=== PATIENT | female | born 1960 | race Caucasian/White ===

== ENCOUNTER 2022-08-27 07:06 | Day surgery (SDC) | payer BC, SELFPAY ==
[2022-08-27] VITALS (24 sets, daily range): BP systolic 96–193; BP diastolic 40–107; PULSE 50–72; RESP 12–18; TEMP 36.4–36.9; O2SAT 92–100; BMI 34.3
[2022-08-27] MEDS: OXYCODONE (CR) 10 MG TAB.ER.12H PO (07:22)
[2022-08-27] MEDS: ACETAMINOPHEN 500 MG TABLET 1000 MG PO ×3 (07:22→20:13)
[2022-08-27] MEDS: LACTATED RINGERS 1000 ML 1,000 ML 100 ML IV ×2 (07:25→10:45)
[2022-08-27] MEDS: SODIUM CHLORIDE 0.9 % (FLUSH) 10 ML SYRINGE IVF (08:01)
--- NOTE | 2022-08-27 08:42 | SUR.PREOP ---
TIME?OUT:?0846 PT/RN/MDA?VERIFICATION?OF?SURGICAL?SITE Left Knee,?PROCEDURE Aductor Canal Block,?AND?CONSENT OBTAINED?PRIOR?TO?INVASIVE?PROCEDURE.
[2022-08-27] MEDS: MIDAZOLAM HCL 1 MG/ML inj IVP (08:47)
[2022-08-27] MEDS: fentaNYL 100 MCG/2 ML inj IVP (08:47)
--- NOTE | 2022-08-27 09:15 | W.ANESCHARGE ---
Anesthesia Charges Start Date/Time Anesthesia Start Date: 08/27/22 Anesthesia Start Time: 09:22 Stop Date/Time Anesthesia Stop Date: 08/27/22 Anesthesia Stop Time: 11:49
--- NOTE | 2022-08-27 09:16 | P.NB_ITS ---
Nerve Block Nerve Block Time Seen by Provider: 08:48 Date Seen: 08/27/22 Type of block requested by surgeon for post-operative analgesia: adductor canal Side: left Time out performed: Yes Verification of patient name: Yes Verification of date of : Yes Site marking: site marked Name of person performing procedure: Brandon Continuous monitoring Was continuous monitoring of O2 sat, B/P, nuclear monitoring technician, recorded every 15 minutes?: Yes Procedure Checklist: sterile prep, needles and gloves Ultrasound guided. Images saved: Yes Medications given in 5ml increments after negative aspiration: Ropivicaine %: 0.5 mL: 20 Needle gauge: 20 Decadron (mg): 10 Precedex (mcg): 25 Patient tolerated procedure well: Yes Additional comments: Needle noted adjacent to nerve Block Charges Block Charge (with Pro Fee): Femoral Nerve Use of Ultrasound Machine for Block: Yes- US Guidance/pain block
--- NOTE | 2022-08-27 09:16 | W.PM.NB ---
Nerve Block Nerve Block Time Seen by Provider: 08:48 Date Seen: 08/27/22 Type of block requested by surgeon for post-operative analgesia: geniculars Side: left Time out performed: Yes Verification of patient name: Yes Verification of date of : Yes Site marking: site marked Name of person performing procedure: Brandon Continuous monitoring Was continuous monitoring of O2 sat, B/P, library monitor, recorded every 15 minutes?: Yes Procedure Checklist: sterile prep, needles and gloves Medications given in 5ml increments after negative aspiration: Ropivicaine %: 0.5 mL: 9 Needle gauge: 25 Patient tolerated procedure well: Yes Block Charges Block Charge (with Pro Fee): Genicular Nerve Block Use of Ultrasound Machine for Block: No
[2022-08-27] MEDS: TRANEXAMIC ACID 100 MG/ML INJ 1000 MG IV (09:25)
[2022-08-27] MEDS: CEFAZOLIN 2 GM INJ IVP (09:30)
--- NOTE | 2022-08-27 10:51 | CRLHL7_ITS ---
For Patients: As a result of the Cures Act, medical imaging exams and procedure reports are released immediately into your electronic medical record. You may view this report before your referring provider. If you have questions, please contact your health care provider. Indication: POSTOP TKA Technique: Two views left knee Findings/Impression: Hardware from a left total knee arthroplasty is in satisfactory position. Bone alignment is normal. No sign of acute fracture. Postop changes are within normal limits. Dictated by Alcon Cunha MD @ 08/27/2022 12:27:34 PM (Electronically Signed)
--- NOTE | 2022-08-27 10:54 | P.ORPRC_ITS ---
Procedure Note Date of procedure: 08/27/22 Procedure: PREOPERATIVE DIAGNOSIS: Left knee osteoarthritis POSTOPERATIVE DIAGNOSIS: Left knee osteoarthritis NAME OF OPERATION: Left total knee arthroplasty SURGEON: Omar Johnson MD [place] ATTENDANT: OSCAR Rodriguez ANESTHESIA: Spinal ESTIMATED BLOOD LOSS: 0 mL COMPLICATIONS: None SPECIMENS: None DRAINS: None PREOPERATIVE ANTIBIOTICS: Ancef 2 grams IMPLANTS: 1. J&J Attune # 5 posterior stabilized femur 2. #4 revision fixed-bearing tibia with a 14 mm x 50 mm stem for 3. #4 posterior stabilized, 5 mm fixed-bearing polyethylene 4. 38 patella INDICATIONS: The patient is a 62-year-old with a longstanding history of severe, unrelenting left knee pain secondary to end-stage (grade IV) left knee osteoarthritis. Despite appropriate nonoperative management, including activity modification, anti-inflammatories, eaux-cra-evgjpmi pain medication, bracing, physical therapy, and injections they continue to have pain and disability. Operative intervention was offered. The risks, benefits and expected outcomes were discussed in detail. These in cluded but were not limited to: Infection, bleeding, injury to blood vessel or nerve, venous thromboembolism. All questions were answered to their satisfaction. Use of an human resources office assistant was necessary throughout the case for patient positioning and safety, soft tissue retraction, and closure. PROCEDURE: Spinal anesthesia was administered. The patient was placed supine on the operating table. The human resources office assistant made sure the patient was positioned appropriately. The lower extremity was prepped and draped in the usual sterile fashion. The limb was exsanguinated with the Jw bandage. The pneumatic tourniquet was inflated to 300 mmHg. A standard anterior incision was made with the knee in flexion. Subcutaneous dissection was sharply taken through fascial layer #1. Full-thickness medial an d lateral flaps were elevated. The human resources office assistant retracted the soft tissues and protected them throughout the case. A standard medial parapatellar approach was made. The patella was everted. The infrapatellar fat pad was preserved. The menisci and cruciate ligaments were sharply d?brided. Marginal osteophytes were d?brided with the rongeur. The drill was used to penetrate the femoral canal. The canal was aspirated and irrigated with pulse lavage. The intramedullary femoral guide was placed for a 5-degree valgus cut, removing 11 mm off the distal femur. The saw was used to make the cut. Whitesides line and the trans epicondylar axis were marked. The femoral sizing guide was pinned onto the distal femur. Three degrees of external rotation nicely parallels the transepicondylar axis. Pins were placed for posterior referencing. The four-in-one cutting guide was pinned onto the distal femur. The anterior, posterior, and chamfer cuts were made. The human resources office assistant protected the collateral ligaments. The box cutting guide was pinned. The box cuts were made. The boxed trial was placed and was an excellent fit. Drill holes for the lugs were made. Attention was then turned to the proximal tibia. The extramedullary tibial guide was placed for a neutral varus/valgus cut with 5 degrees of posterior slope, removing 2 mm based off the medial tibial surface. The human resources office assistant protected the collateral ligaments and the neurovascular bundle. The saw was used to make the cut. Trial components were placed. The knee was nicely balanced in both flexion and extension. The trial components were removed. The tray was placed in appropriate rotation, parallel to our tibial cutting pins. It was pinned by the human resources office assistant and the drill and the punch were used. The tray was removed. The punch was used again. We placed a bone plug in the femoral canal. Attention was then turned to the patella. [place] patellar thickness was 19 mm. The lobster claw resection guide was used with the 7.5 mm chantelle and a saw blade used as an extra chantelle. The saw was used to make the cut. Drill holes were made by the human resources office assistant. The trial was placed and was an excellent fit. Cancellous surfaces were irrigated with pulse lavage and thoroughly dried by the human resources office assistant. We cemented the tibial component, then the femoral component. We impacted the 5 mm polyethylene onto the tibial tray. The knee was brought into full extension. We then cemented the patellar component. Excessive cement was removed. The cement was allowed to harden. The knee was taken through a range of motion and was found to be nicely balanced in both flexion and extension. The patella tracks centrally. The human resources office assistant did a three minute dilute Betadine solution soak. The human resources office assistant irrigated the wound with 3 liters of normal saline via pulse lavage. The human resources office assistant reapproximated the extensor mechanism with #1 Vicryl in an interrupted [id number] fashion. The human resources office assistant then ran the extensor mechanism with a #1 PDO Stratafix. The human resources office assistant closed the subcutaneous tissues with a 3-0 Stratafix and the skin with a running 3-0 Stratafix in a subcuticular fashion. Glue was used to seal the skin. The human resources office assistant placed a dry dressing, MARCIAL stocking, and Polar Care. Sponge and needle counts were correct x2. The patient tolerated the procedure well. There were no apparent complications. They were carefully transferred to the hospital bed and taken to the postanesthesia care unit in satisfactory condition. PLAN: The patient will be mobilized with physical therapy. Aspirin will be used for DVT prophylaxis. They will be discharged to home once medically appropriate.
--- NOTE | 2022-08-27 11:52 | W.ANESCHARGE ---
Anesthesia Charges Start Date/Time Anesthesia Start Date: 08/27/22 Anesthesia Start Time: 09:22 Stop Date/Time Anesthesia Stop Date: 08/27/22 Anesthesia Stop Time: 11:49
--- NOTE | 2022-08-27 14:13 | P.IMCN_ITS ---
Date of Consult Patient: Ailin Patient Consult date: 08/27/22 Primary Care Provider: Holly Liu MD Consult Narrative Reason for consult: Medical management of comorbidities Narrative: Florinda Lopez is a 62 year old female who presented to the hospital today for an elective L TKA. There were no surgical or anesthetic complications noted during procedure. Patient's H&P reviewed, PCP is Dr. Liu locally. 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) Nonsmoker, social alcohol Review of Systems Status of ROS: Reports: 10 or more systems reviewed and unremarkable except as noted in History and below PFSH [facility] Medical History Esophageal reflux ?K21.9 - Gastro-esophageal reflux disease without esophagitis (ICD-10) Hypertension ?I10 - Essential (primary) hypertension (ICD-10) Dysmetabolic syndrome ?E88.81 - Metabolic syndrome (ICD-10) Hypothyroid ?E03.9 - Hypothyroidism, unspecified (ICD-10) Basal cell carcinoma (~2008) ?C44.91 - Basal cell carcinoma of skin, unspecified (ICD-10) Surgical History (Updated 08/27/22 @ 14:18 by Lisa Brito MD) Gastric bypass status for obesity (~2013) ?Z98.84 - Bariatric surgery status (ICD-10) History of tonsillectomy ?Z90.89 - Acquired absence of other organs (ICD-10) Family History Mother Breast cancer Sister Multiple sclerosis FHx: total knee replacement Father Pancreatic cancer Social History Smoking Status: Never smoker Do you use any of these nicotine containing products: None Second hand tobacco smoke exposure: No How often do you have a drink containing alcohol: 2-3 times a week How many standard drinks containing alcohol do you have on a typical day: 1 or 2 How often do you have six or more drinks on one occasion: Never AUDIT-C Alcohol total score: 3 Non-prescribed substance use: denies use Caffeine: Yes (coffee, 1 cup/day) Meds Home Medications and Allergies Home Medications Medication Instructions Recorded Confirmed Type calcium carbonate-vitamin D3 500 1 tab PO DAILY 10/17/21 08/27/22 History mg(1,250 mg)-600 unit chewable tablet cholecalciferol (vitamin D3) 50 100 mcg PO DAILY 10/17/21 08/27/22 History mcg (2,000 unit) capsule vvufhobebtw-uciwwokhyvb-qxk C 500 1 tab PO DAILY 10/17/21 08/27/22 History mg-400 mg-20 mg tablet levothyroxine 88 mcg tablet 88 mcg PO DAILY 10/17/21 08/27/22 History multivitamin 1 tab PO QAM 10/17/21 08/27/22 History cyanocobalamin (vitamin B-12) 2,500 mcg sublingual DAILY 08/27/22 08/27/22 History 2,500 mcg sublingual lozenge Allergies Allergy/AdvReac Type Severity Reaction Status Date / Time pollen extracts Allergy Mild Verified 08/27/22 07:29 amlodipine Allergy Unknown Edema Verified 08/27/22 07:27 lisinopril Allergy Unknown Cough Verified 08/27/22 07:27 amoxicillin [From Augmentin] Allergy Hives Verified 08/27/22 07:27 clavulanic acid Allergy Hives Verified 08/27/22 07:27 [From Augmentin] erythromycin base Allergy Hives Verified 08/27/22 07:27 Exam Narrative: Exam Narrative: GEN: Alert and oriented, nontoxic HEENT: EOMIs bilaterally, no scleral icterus CV: RRR, No concerning murmurs, rubs, or gallops R: LCTA bilaterally without concerning wheezing, air movement adequate Ext: wearing tacho hose bilaterally Skin: No concerning skin lesions or rashes on exposed skin Neuro: No focal deficits Psych: Appropriate Const: Vital Signs, click to edit/add: Vital Signs - 24 hr 08/27/22 07:40 08/27/22 08:46 08/27/22 08:50 Temperature 97.6 F Pulse Rate 72 68 60 Pulse Rate [Left P ulse Oximeter] Respiratory Rate 16 16 16 Blood Pressure 193/95 H 173/107 H 158/81 H Blood Pressure [Ri ght Arm] Pulse Oximetry 97 99 99 Oxygen Delivery Me thod Room Air Nasal Cannula Nasal Cannula Oxygen Flow Rate 2 2 08/27/22 08:52 08/27/22 11:45 08/27/22 11:50 Temperature 98.0 F Pulse Rate 60 61 60 Pulse Rate [Left P ulse Oximeter] Respiratory Rate 16 16 16 Blood Pressure 142/73 H 96/58 L 99/67 Blood Pressure [Ri ght Arm] Pulse Oximetry 100 97 92 Oxygen Delivery Me thod Nasal Cannula Room Air Oxygen Flow Rate 2 08/27/22 11:55 08/27/22 12:00 08/27/22 12:05 Temperature Pulse Rate 63 56 L 53 L Pulse Rate [Left P ulse Oximeter] Respiratory Rate 16 12 14 Blood Pressure 108/74 109/73 124/78 Blood Pressure [Ri ght Arm] Pulse Oximetry 95 95 98 Oxygen Delivery Me thod Oxygen Flow Rate 08/27/22 12:10 08/27/22 12:15 08/27/22 12:20 Temperature 97.5 F L Pulse Rate 50 L 50 L Pulse Rate [Left P ulse Oximeter] 51 L Respiratory Rate 12 14 18 Blood Pressure 128/79 137/83 Blood Pressure [Ri ght Arm] 134/66 Pulse Oximetry 98 99 92 Oxygen Delivery Me thod Room Air Oxygen Flow Rate 08/27/22 12:47 Temperature 97.7 F Pulse Rate 51 L Pulse Rate [Left P ulse Oximeter] Respiratory Rate 18 Blood Pressure Blood Pressure [Ri ght Arm] 134/66 Pulse Oximetry Oxygen Delivery Me thod Room Air Oxygen Flow Rate Assessment and Plan Assessment and plan (1) Status post left knee replacement: Problem comment: - 08/27/22Elizabeth Status: Acute Plan - continue home meds - pain management and prophylaxis per orthopedic surgery team - anticipate routine postoperative course
[2022-08-27] MEDS: CEFAZOLIN 2 GM in 0.9 % SODIUM CHLORIDE Mini-bag 100 ML IVPB ×2 (15:04→23:54)
--- NOTE | 2022-08-27 16:12 | PC.NURSE ---
Nursing Care Hours: [id number] Pt this shift calm and cooperative with cares. Alert and oriented. CMS intact, bilat pedal pulses present. Shallow breathing, educated on IS. VSS on room air. Bandage CDI, cryocuff ice on. Incontinent of bladder while in bed. Up with PT and 2 assist to chair to be changed. Pt still very numb, needed to sit quickly for a break before preceding with brief change. tolerating jello, no nausea. Denies pain.
[2022-08-27] MEDS: OXYCODONE 5 MG TABLET PO ×3 (17:44→23:54)
[2022-08-27] MEDS: SENNOSIDES 1 TAB TABLET 2 TAB PO (20:13)
[2022-08-27] MEDS: ASPIRIN 81 MG TABLET EC PO (20:14)
--- NOTE | 2022-08-27 23:07 | PC.NURSE ---
Shift Note: Pt friendly and cooperative, able to verbalize her needs. VS WNL and LS COA. Surgical dressing to left knee C,D,&I with cryocuff in place. Rates pain 2-4, PRN Oxycodone and scheduled Tylenol given. Moves well with assist x1 with GB and walker. Tolerates regular diet without difficulty. Plans to discharge home and receive help from her niece.
[2022-08-27] MEDS: LACTATED RINGERS 1000 ML 1,000 ML 75 ML IV (23:12)
[2022-08-28] MEDS: ACETAMINOPHEN 500 MG TABLET 1000 MG PO ×2 (02:21→08:18)
[2022-08-28] MEDS: OXYCODONE 5 MG TABLET PO ×3 (02:27→08:51)
[2022-08-28 02:59] VITALS: BP 139/67; PULSE 66; RESP 16; TEMP 36.9; O2SAT 99
[2022-08-28] MEDS: LEVOTHYROXINE 88 MCG TABLET PO (06:23)
[2022-08-28 06:45] LABS: Basophils Absolute Auto 0.01 K/uL (0.00-0.30); Basophils Percent Auto 0.1 % (0.0-3.0); Hematocrit 40.6 % (33.0-51.0); Hemoglobin* 13.5 gm/dL (12.0-16.0); Immature Granulocytes Abs Auto 0.01 K/uL (0.00-0.30); Immature Granulocytes Pct Auto 0.1 %; Lymphocytes Percent Auto 13.9 % (20-44); Mean Corpuscular HGB Conc 33 gm/dL (32-36); Mean Corpuscular Hemoglobin 34 pg (26-34); Mean Corpuscular Volume 103 fL (80-100); Neutrophils Absolute Auto 4.65 K/uL (1.7-7.0); Neutrophils Percent Auto 68.9 % (42.0-72.0); Platelet Count* 183 K/uL (140-440); RDW Coefficient of Variation % 13.2 % (11.5-15.5); Red Blood Count 3.95 m/uL (4.00-5.20); White Blood Count* 6.76 K/uL (4.50-11.00)
[2022-08-28 06:50] LABS: Slide Review Reflex No
[2022-08-28 07:00] VITALS: O2SAT 99
[2022-08-28 07:01] LABS: INR 0.98 (0.91-1.10); Prothrombin Time 13.6 Seconds
[2022-08-28 07:08] LABS: Potassium* 4.1 mmol/L (3.6-5.1); Sodium* 137 mmol/L (135-149)
[2022-08-28 07:11] LABS: Blood Urea Nitrogen* 13 mg/dL (7-30); Creatinine* 0.6 mg/dL (0.5-1.5); Est. Creatinine Clearance* 49.08; Estimated Glomerular Filt Rate 100 ml/min
--- NOTE | 2022-08-28 07:29 | PC.NURSE ---
23-07: pleasant and cooperative. A x 1 with gb and walker. Rates pain 2-5/10 in left knee, see eMAR. VSS. Dressing to knee CDI, cryo cuff on, pt requested ice be placed under left knee as well.
[2022-08-28 07:45] VITALS: BP 151/73; PULSE 67; RESP 16; TEMP 36.6; O2SAT 99
[2022-08-28] MEDS: ASPIRIN 81 MG TABLET EC PO (08:18)
[2022-08-28] MEDS: SENNOSIDES 1 TAB TABLET 2 TAB PO (08:19)
--- NOTE | 2022-08-28 08:25 | P.ORPN_ITS ---
Subjective Subjective Time Seen by Provider: 07:45 Date Seen: 08/28/22 Principal diagnosis: Status post left knee replacement Interval history: Patient is comfortable at rest this morning. She is in a recliner. Her niece will be caring for her in her home upon discharge. Ortho Exam Narrative Exam Narrative: Alert and oriented x3. Patient is in no acute distress. Converses without labored breathing. Hearing is grossly intact. Ambulates with a walker. Examination of the left knee shows mild edema. Mild effusion. Dressing is int act. CMS intact left lower extremity. Bilateral calves are soft and nontender. Const Vital Signs, click to edit/add: Vital Signs - 24 hr 08/27/22 08:46 08/27/22 08:50 08/27/22 08:52 Temperature Pulse Rate 68 60 60 Pulse Rate [Left Pulse Oximeter] Respiratory Rate 16 16 16 Blood Pressure 173/107 H 158/81 H 142/73 H Blood Pressure [Right Arm] Pulse Oximetry 99 99 100 Oxygen Delivery Method Nasal Cannula Nasal Cannula Nasal Cannula Oxygen Flow Rate 2 2 2 08/27/22 11:45 08/27/22 11:50 08/27/22 11:55 Temperature 98.0 F Pulse Rate 61 60 63 Pulse Rate [Left Pulse Oximeter] Respiratory Rate 16 16 16 Blood Pressure 96/58 L 99/67 108/74 Blood Pressure [Right Arm] Pulse Oximetry 97 92 95 Oxygen Delivery Method Room Air Oxygen Flow Rate 08/27/22 12:00 08/27/22 12:05 08/27/22 12:10 Temperature 97.5 F L Pulse Rate 56 L 53 L 50 L Pulse Rate [Left Pulse Oximeter] Respiratory Rate 12 14 12 Blood Pressure 109/73 124/78 128/79 Blood Pressure [Right Arm] Pulse Oximetry 95 98 98 Oxygen Delivery Method Oxygen Flow Rate 08/27/22 12:15 08/27/22 12:20 08/27/22 12:30 Temperature 97.7 F Pulse Rate 50 L Pulse Rate [Left Pulse Oximeter] 51 L 51 L Respiratory Rate 14 18 18 Blood Pressure 137/83 Blood Pressure [Right Arm] 134/66 134/66 Pulse Oximetry 99 92 92 Oxygen Delivery Method Room Air Room Air Oxygen Flow Rate 08/27/22 12:45 08/27/22 12:47 08/27/22 13:00 Temperature 97.7 F Pulse Rate 51 L Pulse Rate [Left Pulse Oximeter] 56 L 51 L Respiratory Rate 18 18 Blood Pressure Blood Pressure [Right Arm] 124/64 134/66 104/84 Pulse Oximetry 96 99 Oxygen Delivery Method Room Air Room Air Room Air Oxygen Flow Rate 08/27/22 13:15 08/27/22 13:30 08/27/22 14:00 Temperature Pulse Rate Pulse Rate [Left Pulse Oximeter] 61 Respiratory Rate 18 Blood Pressure Blood Pressure [Right Arm] 127/68 136/40 L 149/92 H Pulse Oximetry 98 96 Oxygen Delivery Method Room Air Oxygen Flow Rate 08/27/22 15:00 08/27/22 15:00 08/27/22 15:00 Temperature Pulse Rate Pulse Rate [Left Pulse Oximeter] 61 64 Respiratory Rate 18 16 Blood Pressure Blood Pressure [Right Arm] 139/77 Pulse Oximetry 96 95 Oxygen Delivery Method Room Air Oxygen Flow Rate 08/27/22 16:00 08/27/22 17:00 08/27/22 18:00 Temperature 98.3 F 98.1 F Pulse Rate Pulse Rate [Left Pulse Oximeter] 64 64 70 Respiratory Rate 18 18 16 Blood Pressure Blood Pressure [Right Arm] 130/64 139/77 139/75 Pulse Oximetry 99 98 94 Oxygen Delivery Method Room Air Room Air Room Air Oxygen Flow Rate 08/27/22 23:00 08/27/22 23:00 08/27/22 23:00 Temperature 98.4 F Pulse Rate Pulse Rate [Left Pulse Oximeter] 68 68 Respiratory Rate 16 16 Blood Pressure Blood Pressure [Right Arm] 123/66 Pulse Oximetry 95 95 Oxygen Delivery Method Room Air Oxygen Flow Rate 08/28/22 02:59 Temperature 98.4 F Pulse Rate Pulse Rate [Left Pulse Oximeter] 66 Respiratory Rate 16 Blood Pressure Blood Pressure [Right Arm] 139/67 Pulse Oximetry 99 Oxygen Delivery Method Room Air Oxygen Flow Rate Assessment and Plan Assessment and plan (1) Status post left knee replacement: Problem details: - 08/27/22Elizabeth Status: Acute Assessment and Plan: Plan for discharge is today to home if they meet discharge criteria. DVT prophylaxis includes aspirin 81 mg twice daily x1 month, Octaviano stockings x1 month may remove for 1 hr per day, frequent ambulation Remove dressing in 1 week. Observe wound and phone Orthopedics with any questions or concerns Return to clinic in 1 week for a wound check Return to clinic in [address] Johnson Minimize narcotic use. Wean off and discontinue soon as possible. Activities as tolerated. No strenuous activity. Outpatient physical therapy as scheduled. Ice and elevate the operative extremity. No restriction on ice.
--- NOTE | 2022-08-28 11:21 | PC.NURSE ---
VSS AND AFEBRILE. LS CLEAR. BS ACTIVE AND PASSING GAS. TOLERATING REGULAR DIET WITH NO C/O N/V. DRESSING TO LEFT KNEE CDI. PAIN CONTROLLED WITH TYLENOL AND PRN OXYCODONE. UP WITH A1, WALKER AND GAIT BELT AND TOLERATING ACTIVITY WELL. SALINE LOCK DC'D. REVIEWED DC INSTRUCTIONS WITH PATIENT AND HER NIECE. PATIENT DC'D HOME WITH NIECE.
--- NOTE | 2022-08-28 12:00 | PC.SOCIAL ---
Per therapy, pt is moving around well with minimal pain. Pt has assistance at home with family members. There are no identified social work needs.
== END 2022-08-28 11:10 | disposition home or self-care (01) ==
LOC: OR 07:07 → MEDSURG 07:12
PROVIDERS: PCP Family Medicine; Visit Provider Orthopaedic Surgery
PROC: (CPT 27447; principal; 2022-08-27 09:15)
DX: M17.12 Unilateral primary osteoarthritis, left knee (principal); G89.18 Other acute postprocedural pain; E03.9 Hypothyroidism, unspecified; K21.9 Gastro-esophageal reflux disease without esophagitis; I10 Essential (primary) hypertension; E88.81 Metabolic syndrome and other insulin resistance; Z85.828 Personal history of other malignant neoplasm of skin
CPT/HCPCS: 27447; 01402; 36415; 64447; 64454; 73560; 76942; 82565; 84132; 84295; 84520; 85025; 85610; 97110; 97116; 97161; 97165; 97530; 97535; A9270; C1776; J0690; J1100; J2250; J2405; J2704; J2795; J3010; J7120

== ENCOUNTER 2022-09-23 10:00 | Outpatient (RCR) | payer BC, SELFPAY ==
--- NOTE | 2022-08-19 12:43 | PT.OPEX ---
PT [place] Outpatient Eval PT [facility] Outpatient Eval Start: 08/19/22 10:58 Freq: Status: Active Protocol: Document 08/19/22 11:00 NICK (Rec: 08/19/22 12:41 NICK [id number]) E-signed By Georgina Blanc PT Physical Therapy Outpatient Evaluation Insurance Information Recert Due Date 11/11/22 Insurance Name [employer] Medical Diagnosis OA LEFT KNEE M17.12 Treating Diagnosis DECREASED STRENGTH DECREASED ROM DECREASED GT DECREASED BALANCE Subjective Subjective I'M READY TO GET THIS SURGERY DONE. I'VE BEEN DEALING WITH THESE KNEES FOR A COUPLE OF YEARS. 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 SANCHEZ REFERRED TO PHYSICAL THERAPY FOR PREOPERATIVE TRAINING FOR HER UPCOMING LEFT TKA ON 08/27/22; PMHX INCLUDES BUT NOT LIMITED TO HYPOTHYROIDISM, HTN, H/O GASTRIC BYPASS (2013), BILATERAL SEVERE OA. SHE LIVES ALONE IN A 2 STORY HOME W/O STEPS TO ENTER AND HANDRAIL LEFT ASCENDING TO HER SECOND STORY WHERE HER BEDROOM AND TUB/SHOWER ARE LOCATED. SHE WILL BE ON THE FIRST FLOOR UNTIL SHE IS ABLE TO MANAGE HER STEPS. ADDITIONALLY, SHE WILL BUE USING BIAXILLARY CRUTCHES RATHER THAN FWW SHE HAS EXPERIENCE WITH CRUTCHES FROM A PREVIOUS ANKLE INJURY. SHE WILL HAVE FAMILY ASSIST HER DURING THE FIRST 1- 2 WEEKS AND FRIENDS TO ASSIST SHE SHOULD NEED AFTER THEY LEAVE. SHE DEMONSTRATES 12 DEGREE EXTENSION LOSS ON HER LEFT AND SIMILAR ON HER RIGHT KNEE. WE DISCUSSED AND PERFORMED EA OF THER POST OP EXERCISES WITH EMPHASIS ON STATIC EXTENSION STRETCHES ALONG WITH QUAD SETS TO FOCUS ON PREOPERATIVELY. WE DISCUSSED FALL PREVENTION AND SUGGESTED SUCTION GRAB BAR AND TOILET RISER TO PATIENT TO ASSIST. SHE VERBALIZED UNDERSTANDING OF ALL SKILLED INSTRUCTIONS AND ENCOURAGED TO WRITE DOWN ANY FURTHER QUESTIONS AND EITHER CALL ME OR ADDRESS UPON DISCHARGE FROM HOSPITAL. SHE WILL F/U WITH ME ON Friday08/30/22 FOR HER FIRST POST OP VISIT. Primary Functional Limitations DECREASED STRENGTH DECREASED ROM ANTALGIC GAIT Plan of Care Rehabilitation Potential Excellent Physical Therapy Goals 1. PATIENT WILL BE INDEPENDENT WITH HER HEP IN 1 WEEK 2. PATIENT WILL VERBALIZE GOOD FALL PREVENTION TECHNIQUES IN 1 WEEK. Coordination/Communication With Referral Source Treatment Plan/Direct Interventions Electrical Stimulation,Gait Training,Heat,Ice/Cold/ Vasopneumatic,Joint Mobilization,Manual Therapy, Neuromuscular Re-ed, Therapeutic Activities, Therapeutic Exercises Frequency/Duration 2XWK FOR 8-10 WEEKS Patient Will Be Discharged From Therapy Completion of LTG(s), Independently Progressing Discharge Plan Comments DISCHARGED WHEN GOALS MET Evaluation Billing Untimed Code Treatment Minutes 20 PT Eval No Charge No Complexity Moderate Certification Information Initial Certification Date 08/19/22 Ending Certification Date 11/17/22 Provider Signature Shows Agreement With POC & Medical Necessity Physician Signature & Date Requested Please Sign/Date Here Physician Comment/Change : Physician NPI Number #
== END 2022-10-28 15:20 | disposition home or self-care (01) ==
PROVIDERS: PCP Family Medicine; Visit Provider Orthopaedic Surgery
DX: M17.12 Unilateral primary osteoarthritis, left knee (principal); Z51.89 Encounter for other specified aftercare
CPT/HCPCS: 97110; 97116; 97140; 97162; 97164

== ENCOUNTER 2023-01-22 12:00 | Outpatient (CLI) | payer BC, SELFPAY ==
[2023-01-22 12:10] VITALS: BP 149/89; PULSE 76; RESP 16; O2SAT 99
[2023-01-22] MEDS: TETRACAINE 0.5% OPHTH 1 DROP EYE-RIGHT ×3 (12:13→12:40)
[2023-01-22] MEDS: BRIMONIDINE TARTRATE 0.2% OPHTH 1 DROP EYE-RIGHT ×2 (12:14→12:44)
--- NOTE | 2023-01-22 12:39 | W.PM.OPTPROC ---
Procedure Note Date of procedure: 01/22/23 Will [facility] bill your pro fee for this procedure?: Yes Procedure Description: SURGEON: Rina Johnson MD PREOPERATIVE DIAGNOSIS: Posterior capsular opacity, right eye POSTOPERATIVE DIAGNOSIS: Posterior capsular opacity, right eye PROCEDURE: YAG laser capsulotomy, right eye ANESTHESIA: Topical. ESTIMATED BLOOD LOSS: None PATHOLOGY SPECIMEN: None COMPLICATIONS: None INDICATIONS: See consult note for details. The risks, benefits and alternatives of the procedure were explained to the patient, who elected to proceed and signed informed consent to do so. PROCEDURE: The patient was brought to the pre-holding area where the right eye was identified as the operative eye. I placed my initials above this eye. The patient received 2 sets of 1 drop of 0.5% tetracaine and 1 drop of 1% tropicamide. They also received 1 drop of 0.2% brimonidine. They received 1 drop of 0.5% tetracaine immediately prior to bringing them back for the procedure. The patient was then brought to the procedure room where the right eye was again identified as the operative eye. A YAG Giorgi capsulotomy lens was placed on the eye. The laser was administered using a total number of 9 shots with an energy of 2.4 mJ per shot for a total energy of 22 mJ. The patient tolerated the procedure well. DISPOSITION: The patient was taken back to the pre-holding area and given 1 drop of 0.2% brimonidine in the right eye. They were discharged to home in stable condition. The patient was instructed to call me or go to the emergency department with any sudden change, including dramatic loss of vision, severe pain in the eye or eyebrow region, nausea, or vomiting. The patient was instructed to use the 0.2% brimonidine 1 drop 2 times a day in the right eye for 1 week. The patient will follow up in the clinic in 1-2 weeks.
== END 2023-01-22 12:45 | disposition home or self-care (01) ==
LOC: EYE PRC 12:00
PROVIDERS: PCP Family Medicine; Visit Provider Ophthalmology
DX: H26.9 Unspecified cataract (principal)
CPT/HCPCS: 66821; A9270

== ENCOUNTER 2024-01-08 09:30 | Outpatient (RCR) | payer BC, SELFPAY ==
--- NOTE | 2023-12-16 18:11 | PT.OPEX ---
PT [place] Outpatient Eval PT [facility] Outpatient Eval Start: 12/15/23 16:54 Freq: Status: Active Protocol: Document 12/16/23 08:27 NLR (Rec: 12/16/23 18:11 NLR [id number]) E-signed By Tata Alejandra DPT Physical Therapy Outpatient Evaluation Insurance Information Insurance Name Blue Cross/Blue Shield Medical Diagnosis M25.561 R knee pain Treating Diagnosis M25.561 Right knee pain Imaging Report Information 11/19/23 X-ray: AP and lateral views of the right knee show end-stage tricompartmental osteoarthritis with bone-on- bone joint space narrowing. There is no obvious acute fracture. Referring MD Isabella Toussaint NP ([facility]) (Ortho Omar Johnson MD) Subjective Preferred Name FLORINDA Subjective Patient had a L TKA August 27, 2022. She has a history or R knee pain but it was responding to cortisone shots. About 5 weeks ago she was walking and twisted the R knee , by the next day she couldn't walk. She was stretching, elevating and icing. She had another cortisone shot in that knee and it did not help this time. She struggled with mobility for several weeks and then went to urgent care, who referred her to PT. She has not seen Dr. Johnson since the had the cortisone injection. She states she thinks she will need to do a R TKA, but she is hoping to prolong with therapy so she can do the surgery in the summer when she is not as busy at work. L knee is good post TKA in 2022, although she notes she doesn' t have full sensation at the knee. Pain Comments 1/10 in morning to 7/10 (the last few weeks) after sitting or standing. Pain is minimal in the morning. Any bit of standing or sitting causes pain and stiffness when she gets up. She has not done any walking of any distance and she walks very slowly, especially when she first gets up. Pain is sharp jabbing pain lateral distal patella, dull, burny, achy in the back - feels tight. Not a very good sleeper, but pain is not the reason. She is icing, Tylenol is marginally effective (can't do NSAIDs), elevating. 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 She has off time in the summer, which is why she is hoping to postpone a surgery to R knee if possible. Prior to injury she was walking, wasn't having any issues with stairs, tub, car transfers. She doesn't like getting on her knees as this is uncomfortable. Precautions Treatment Precautions/Contraindications Known R knee arthritis, previous L TKA 08/27/[address] Prashant Johnson Weight Bearing Status Full Weight Bearing Therapy Limitations/Systems Review Not Limited Objective Other/Pertinent Objective HAND DOM: RIGHT ROM: R knee 24-104 with end range stiffness (L knee 5-120) STRENGTH: R quad grossly 3+/5, R hip flexor 3+/5, R hamstring 4/5 PALPATION: Tender to palpation at R pes anserine and R lateral patella POSTURE: R shoulder low and retracted, B pronation with ankle valgus, B knees held in flexion in stance FLEXIBILITY: Hypoflexibility noted B quad, IT band, hamstrings and HF FOOTWEAR: New Balance for the last 5 weeks - prior a lace up type shoe OTHER PMH: Arthritis, metal implants (L knee) Assessment Assessment/Impression Florinda is a very pleasant 63 year old female who presents for PT evaluation after twisting her knee while walking several weeks ago. She has known advanced OA in that knee and has had a contralateral TKA one year ago . She has managed her R knee pain with cortisone injections prior to this injury, but cortisone not helpful this time. 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 Pain today is consistent with OA, but also notable for lateral patellar alignment/patellofemoral components compounded by stiffness, weakness and decreased AROM. Primary Functional Limitations Difficulty standing greater than 10 minutes, difficulty getting up to walk after sitting greater than 30 minutes. Plan of Care Rehabilitation Potential Good Rehabilitation Potential Comments Patient is otherwise healthy and motivated to improve in order to return to prior level of function. Physical Therapy Goals 1. Patient will be independent with home exercise program as instructed, modified and progressed by physical therapist in order to be independently and actively participating in their rehabilitation and return to prior level of function. Goal to be achieved by 03/15/2024. 2. Patient will demonstrate ability to stand for 60 minutes(s) without significant increase in pain greater than 2/10 to allow patient to be able to safely and independently return to pre- onset prior level of function for functional activities such as going to work. Goal to be achieved by 03/15/2024. Coordination/Communication With Referral Source Treatment Plan/Direct Interventions Dry Needling,Manual Therapy, Neuromuscular Re-ed,Self-Care/ Home Management,Therapeutic Activities,Therapeutic Exercises Frequency/Duration 1X/week for 6-8 weeks Patient Will Be Discharged From Therapy Completion of LTG(s),Skills Plateau,Independent w/HEP, Independently Progressing Discharge Plan Comments DC with HEP Evaluation Billing Untimed Code Treatment Minutes 20 PT Eval No Charge No Complexity Low Certification Information Provider Signature Required Communication Only-No Signature Required
== END 2024-05-07 23:59 | disposition home or self-care (01) ==
PROVIDERS: PCP Family Medicine; Visit Provider Nurse Practitioner
DX: S89.91XA Unspecified injury of right lower leg, initial encounter (principal); M25.561 Pain in right knee; M17.11 Unilateral primary osteoarthritis, right knee; Z96.651 Presence of right artificial knee joint; M25.661 Stiffness of right knee, not elsewhere classified; Z51.89 Encounter for other specified aftercare
CPT/HCPCS: 97110; 97112; 97140; 97161; 97164; 97535

== ENCOUNTER 2024-03-16 06:08 | Day surgery (SDC) | payer BC, SELFPAY ==
[2024-03-16] VITALS (18 sets, daily range): BP systolic 97–186; BP diastolic 54–93; PULSE 52–79; RESP 14–18; TEMP 36.1–36.9; O2SAT 95–97; BMI 37.0
[2024-03-16] MEDS: SODIUM CHLORIDE 0.9 % (FLUSH) 10 ML SYRINGE IVF (06:45)
[2024-03-16] MEDS: LACTATED RINGERS 1000 ML 1,000 ML 100 ML IV (06:45)
[2024-03-16] MEDS: OXYCODONE (CR) 10 MG TAB.ER.12H PO (06:54)
[2024-03-16] MEDS: ACETAMINOPHEN 500 MG TABLET 1000 MG PO ×2 (06:54→13:00)
[2024-03-16] MEDS: MIDAZOLAM HCL 1 MG/ML inj IVP (07:13)
[2024-03-16] MEDS: fentaNYL 100 MCG/2 ML inj IVP (07:13)
--- NOTE | 2024-03-16 07:13 | SUR.PREOP ---
TIME?OUT:?12 PT/RN/MDA?VERIFICATION?OF?SURGICAL?SITE,?PROCEDURE,?AND?CONSENT OBTAINED?PRIOR?TO?INVASIVE?PROCEDURE. all in agreement
[2024-03-16] MEDS: TRANEXAMIC ACID 100 MG/ML INJ 1000 MG IV (07:47)
[2024-03-16] MEDS: CEFAZOLIN 2 GM INJ IVP (07:47)
--- NOTE | 2024-03-16 08:58 | CRLHL7_ITS ---
For Patients: As a result of the Cures Act, medical imaging exams and procedure reports are released immediately into your electronic medical record. You may view this report before your referring provider. If you have questions, please contact your health care provider. Indication: Postop TKA Technique: Two views right knee Findings/Impression: Hardware from a right total knee arthroplasty is in satisfactory position. Bone alignment is normal. No sign of acute fracture. Postop changes are within normal limits. Dictated by Alcon Cunha MD @ 03/16/2024 11:36:03 AM (Electronically Signed)
--- NOTE | 2024-03-16 09:01 | PM.ORPRC ---
Procedure Note Date of procedure: 03/16/24 Procedure: PREOPERATIVE DIAGNOSIS: Right knee osteoarthritis POSTOPERATIVE DIAGNOSIS: Right knee osteoarthritis NAME OF OPERATION: Right total knee arthroplasty SURGEON: Omar Johnson MD CLAM GROWER: Cora Saavedra PA-C ANESTHESIA: Spinal ESTIMATED BLOOD LOSS: 0 mL COMPLICATIONS: None SPECIMENS: None DRAINS: None PREOPERATIVE ANTIBIOTICS: Ancef 2 grams, antibiotic impregnated cement IMPLANTS: 1. J&J Attune #4 posterior stabilized femur 2. #5 fixed-bearing tibia 3. #4 posterior stabilized, 5 mm fixed-bearing polyethylene 4. 38 patella INDICATIONS: The patient is a 63-year-old with a longstanding history of severe, unrelenting right knee pain secondary to end-stage (grade IV) right knee osteoarthritis. Despite appropriate nonoperative management, including activity modification, anti-inflammatories, [id number] pain medication, bracing, physical therapy, and injections they continue to have pain and disability. Operative intervention was offered. The risks, benefits and expected outcomes were discussed in detail. These included but were not limited to: Infection, bleeding, injury to blood vessel or nerve, venous thromboembolism. All questions were answered to their satisfaction. Use of an physical therapy assistant was necessary throughout the case for patient positioning and safety, soft tissue retraction, and closure. A modifier 22 should be added to this case. With a BMI of 37, we attempted to reduce her risk of aseptic loosening by using a stemmed tibial component. This added time and cost to complete the case. PROCEDURE: Spinal anesthesia was administered. The patient was placed supine on the operating table. The physical therapy assistant made sure the patient was positioned appropriately. The lower extremity was prepped and draped in the usual sterile fashion. The limb was exsanguinated with the Jw bandage. The pneumatic tourniquet was inflated to 300 mmHg. A standard anterior incision was made with the knee in flexion. Subcutaneous dissection was sharply taken through fascial layer #1. Full-thickness medial and lateral flaps were elevated. The physical therapy assistant retracted the soft tissues and protected them throughout the case. A standard subvastus approach was made. The patella was subluxed. The infrapatellar fat pad was debrided. The menisci and cruciate ligaments were sharply d?brided. Marginal osteophytes were d?brided with the rongeur. The drill was used to penetrate the femoral canal. The canal was aspirated and irrigated with pulse lavage. The intramedullary femoral guide was placed for a 5-degree valgus cut, removing 10 mm off the distal femur. The saw was used to make the cut. Whitesides line and the trans epicondylar axis were marked. The femoral sizing guide was pinned onto the distal femur. Three degrees of external rotation nicely parallels the transepicondylar axis. Pins were placed for posterior referencing. The four-in-one cutting guide was pinned onto the distal femur. The anterior, posterior, and chamfer cuts were made. The physical therapy assistant protected the collateral ligaments. The box cutting guide was pinned. The box cuts were made. The boxed trial was placed and was an excellent fit. Drill holes for the lugs were made. Attention was then turned to the proximal tibia. The extramedullary tibial guide was placed for a neutral varus/valgus cut with 5 degrees of posterior slope, removing 2 mm based off the medial tibial surface. The physical therapy assistant protected the collateral ligaments and the neurovascular bundle. The saw was used to make the cut. Trial components were placed. The knee was nicely balanced in both flexion and extension. The trial components were removed. The tray was placed in appropriate rotation, parallel to our tibial cutting pins. It was pinned by the physical therapy assistant and the drill x2 was used. The stemmed tibial trial was placed. The punch was used. The tray was removed. The punch was used again. Attention was then turned to the patella. [place] patellar thickness was 18.5 mm. The lobster claw resection guide was used with the 7.5 mm chantelle plus the saw blade used as an extra chantelle. The saw was used to make the cut. Drill holes were made by the physical therapy assistant. The trial was placed and was an excellent fit. Cancellous surfaces were irrigated with pulse lavage and thoroughly dried by the physical therapy assistant. We cemented the tibial component, then the femoral component. We impacted the 5 mm polyethylene onto the tibial tray. The knee was brought into full extension. We then cemented the patellar component. Excessive cement was removed. The cement was allowed to harden. The knee was taken through a range of motion and was found to be nicely balanced in both flexion and extension. The patella tracks centrally. The physical therapy assistant did a three minute dilute Betadine solution soak. The physical therapy assistant irrigated the wound with 3 liters of normal saline via pulse lavage. The physical therapy assistant reapproximated the extensor mechanism with #1 Vicryl in an interrupted ktzgdz-ob-pzwxg fashion. The physical therapy assistant then ran the extensor mechanism with a #1 PDO Stratafix. The physical therapy assistant closed the subcutaneous tissues with a 3-0 Stratafix and the skin with a running 3-0 Stratafix in a subcuticular fashion. Glue was used to seal the skin. The physical therapy assistant placed a dry dressing. Sponge and needle counts were correct x2. The patient tolerated the procedure well. There were no apparent complications. They were carefully transferred to the hospital bed and taken to the postanesthesia care unit in satisfactory condition. PLAN: The patient will be mobilized with physical therapy. Aspirin will be used for DVT prophylaxis. They will be discharged to home once medically appropriate.
--- NOTE | 2024-03-16 09:44 | W.ANESCHARGE ---
Anesthesia Charges Start Date/Time Anesthesia Start Date: 03/16/24 Anesthesia Start Time: 07:20 Stop Date/Time Anesthesia Stop Date: 03/16/24 Anesthesia Stop Time: 09:42
--- NOTE | 2024-03-16 10:49 | P.NB_ITS ---
Nerve Block Nerve Block Time Seen by Provider: 07:15 Date Seen: 03/16/24 Type of block requested by surgeon for post-operative analgesia: adductor canal Side: right Time out performed: Yes Verification of patient name: Yes Verification of date of : Yes Site marking: site marked Name of person performing procedure: Brandon Continuous monitoring Was continuous monitoring of O2 sat, B/P, threat monitoring analyst, recorded every 15 minutes?: Yes Procedure Checklist: sterile prep, needles and gloves Ultrasound guided. Images saved: Yes Medications given in 5ml increments after negative aspiration: Marcaine %: 0.25 mL: 15 Needle gauge: 20 Precedex (mcg): 25 Patient tolerated procedure well: Yes Block Charges Block Charge (with Pro Fee): Femoral Nerve Use of Ultrasound Machine for Block: Yes- US Guidance/pain block
--- NOTE | 2024-03-16 10:50 | P.NB_ITS ---
Nerve Block Nerve Block Time Seen by Provider: 07:15 Date Seen: 03/16/24 Type of block requested by surgeon for post-operative analgesia: geniculars Side: right Time out performed: Yes Verification of patient name: Yes Verification of date of : Yes Site marking: site marked Name of person performing procedure: Brandon Continuous monitoring Was continuous monitoring of O2 sat, B/P, front desk monitor, recorded every 15 minutes?: Yes Procedure Checklist: sterile prep, needles and gloves Ultrasound guided. Images saved: Yes Medications given in 5ml increments after negative aspiration: Marcaine %: 0.25 mL: 9 Needle gauge: 25 Patient tolerated procedure well: Yes Block Charges Block Charge (with Pro Fee): Genicular Nerve Block
--- NOTE | 2024-03-16 10:50 | W.ANESCHARGE ---
Anesthesia Charges Start Date/Time Anesthesia Start Date: 03/16/24 Anesthesia Start Time: 07:20 Stop Date/Time Anesthesia Stop Date: 03/16/24 Anesthesia Stop Time: 09:42
[2024-03-16] MEDS: OXYCODONE 5 MG TABLET PO (11:34)
--- NOTE | 2024-03-16 13:39 | SUR.PHASEII ---
Pt tolerated toast and water. Tingling pain in knee 04/09. Pt asking for pain medication before PT. Oxycodone and Acetaminophen given. At 1300, pt states bottom of feet still feel numb, not great strength felt when had pt push against hands. Sister in room.
--- NOTE | 2024-03-16 13:58 | SUR.PHASEII ---
pt dressed,.up to bathroom with wheelchair and staff. Pt states her legs feel a little weak, Pivot transfer to toilet. Pt drank one glass of water and 4 oz can of Diet Coke. Encouraged oral intake, offered Pedialyte.
--- NOTE | 2024-03-16 14:13 | SUR.PHASEII ---
pt voided. sitting up in chair.
--- NOTE | 2024-03-16 15:14 | SUR.PHASEII ---
Pt back from Physical Therapy, passed. D/c instructions reviewed and pt understanding. Will D/c to home when pt's delivery route driver arrives.
== END 2024-03-16 15:26 | disposition home or self-care (01) ==
LOC: OR 06:09
PROVIDERS: PCP Family Medicine; Visit Provider Orthopaedic Surgery
PROC: (CPT 27447; principal; 2024-03-16 07:15)
DX: M17.11 Unilateral primary osteoarthritis, right knee (principal); G89.18 Other acute postprocedural pain; E88.810 Metabolic syndrome; I10 Essential (primary) hypertension; Z98.84 Bariatric surgery status; Z68.37 Body mass index [BMI] 37.0-37.9, adult
CPT/HCPCS: 27447; 01402; 64447; 64454; 73560; 76942; 97110; 97116; 97161; A9270; C1776; J0665; J0690; J1100; J2250; J2405; J2704; J3010; J7120

== ENCOUNTER 2024-04-26 11:00 | Outpatient (RCR) | payer BC, SELFPAY ==
--- NOTE | 2024-03-18 11:59 | PT.OPEX ---
PT [place] Outpatient Eval PT [facility] Outpatient Eval Start: 03/17/24 15:45 Freq: Status: Active Protocol: Document 03/18/24 07:15 MLS (Rec: 03/18/24 11:58 MLS [id number]) E-signed By Katlyn Huang DPT Physical Therapy Outpatient Evaluation Insurance Information Recert Due Date 06/15/24 Insurance Name Medicare B,Blue Cross/Blue Shield Medical Diagnosis Z96.651 presence of right artificial knee joint M17.11 unilateral primary OA, right knee s/p right TKA 03/16/24 Treating Diagnosis R TKA protocol Referring MD Dr. Johnson Subjective Subjective Patient is a 63 year old female who presents to physical therapy with s/p right TKA on 03/16/24. She states that surgery went well. She reports that she went home the same day. She states that yesterday was not a good day with the block wearing off. She states that she is alternating the Oxy and Tylenol every four hours, not exceeding six of the oxy. She states that she slept better last night. She is sleeping in a recliner chair on her main level. She states that her sister is staying through the . She does have some tingling and achiness in the back of her leg. Significant past medical history includes arthritis and metal implants ( L knee) July 2022. Patient would like to have less pain and return to her regular activities through physical therapy sessions. 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 [employer] - on hol sitting, standing, some walking Precautions Weight Bearing Status Full Weight Bearing Therapy Limitations/Systems Review Not Limited Objective Other/Pertinent Objective Gait/functional mobility Right antalgic gait w FWW Right knee ROM Extension/flexion: supine -20- 85 - 10-105 with overpressure HIP AROM: WFL RLE MMT Hip flexion: 3+/5 Hip abduction 3-/5 Hip extension 3+/5 Knee extension 3-/5 Knee flexion 3-/5 Girth at knee joint line L 44 cm, R 50cm Girth 3 inches from superior patella L 59 cm, R 65 cm TX: ankle pumps x 15 supine heel slide x 15 supine quad sets x 15, 3 sec hold supine SAQ x 15, 3 sec hold SLR with quad set 2 x 5 with assist, focus on ECC seated long arc quad x 15, pause at top seated marching x 15 seated knee flexion AAROM 4 x 30 sec holds supine knee flexion with OP x 5 supine knee extension stretch on bolster - 5 min w OP Tubigrip size J Assessment Assessment/Impression Pt is a 63 year old female who presents to PT s/p right TKA on 03/16/24. Patient also has notable objective findings including limited ROM, tenderness to palpation, and decreased strength which are also likely contributing to the problem. Patient is a good candidate for skilled therapy to target deficits described above. Skilled PT intervention is necessary for use of therapeutic exercise manual therapy, neuromuscular re- education, gait training, and therapeutic activity. Functional impairments include difficulty with: standing, walking, driving, sleeping, exercising, ADLs. See appropriate sections of PT eval for complete list of goals and POC. D/C plan and criteria is for pt to achieve the goals as listed below or until max rehab potential is met. Pt was agreeable with plan of care and goals established. Primary Functional Limitations standing walking driving exercising ADLs sleeping Plan of Care Rehabilitation Potential Good Physical Therapy Goals Within 10-12 weeks: 1) Pt will improve knee AROM at least 0 to 120 for improved sit to stand transfers 2) Pt will demonstrate negative extensor lag during straight leg raise exercise with ability to complete at least 15 reps with 5 sec hold to improve strength for ambulation 3) Patient will demonstrate/ report ability to walk for 15 minutes w/SPC with pain level <1/10, to allow for community and household ambulation. 4) Pt will be indep with HEP for termite exterminator helper management of pain/symptoms 5) Patient will ascend/descend at least 10 steps using single rail and reciprocal pattern to improve ease of mobility at home/community 7) Patient will demonstrate/ report ability to walk for 15 minutes w/o AD with pain level <1/10, to allow for community and household ambulation. Coordination/Communication With Referral Source Treatment Plan/Direct Interventions Gait Training,Ice/Cold/ Vasopneumatic,Manual Therapy, Neuromuscular Re-ed, Therapeutic Activities, Therapeutic Exercises Patient Will Be Discharged From Therapy Independently Progressing Evaluation Billing Untimed Code Treatment Minutes 30 Complexity Low Certification Information Provider Signature Required Yes Provider Signature Shows Agreement With POC & Medical Necessity Physician NPI Number Write NPI# Here Physician Comment/Change : Physician Signature & Date Requested Please Sign/Date Here
== END 2024-07-26 09:29 | disposition home or self-care (01) ==
PROVIDERS: PCP Family Medicine; Visit Provider Orthopaedic Surgery
DX: M17.11 Unilateral primary osteoarthritis, right knee (principal); Z96.651 Presence of right artificial knee joint; Z51.89 Encounter for other specified aftercare
CPT/HCPCS: 97110; 97140; 97161